=== PATIENT | male | born 1950 | race Caucasian/White ===

== ENCOUNTER 2021-05-12 07:10 | Inpatient (IN) | payer BC, OTHER ==
[~2021-05-12] VITALS: Ht 167.6 cm; Wt 97.5 kg
[~2021-05-12 07:10] MED LIST: ASA81 MG PO; CLARITIN-D 241 EACH PO; DIOVAN160 MG PO; FLAGYL250 MG PO; JANUVIA100 MG PO; LEVAQUIN500 MG PO; SIMVASTATIN40 MG PO; Z.0.ALEVE220 MG PO; Z.0.LIPITOR20 MG PO; Z.0.MULTIVITAMINS1 E PO; Z.0.PRINIVIL20 MG PO; Z.0.PROTONIX40 MG PO
[2021-05-12] MEDS ORDERED: ONDANSETRON HCL INJ 2MG/ML 2ML 2 MG/ML VIAL IV STA (07:20)
[2021-05-12] MEDS ORDERED: Morphine 4mg Syringe 4 MG/ML INJ IV STA (07:20)
[2021-05-12] MEDS ORDERED: SODIUM CHLORIDE 0.9% 1000ML 1,000 ML IV STA (07:20)
[2021-05-12 07:32] LABS: BASOPHILS % 0.7 % (0.0-1.0); EOSINOPHILS # (AUTO) 0.2 (0.0-0.4); EOSINOPHILS % 3.4 % (0.0-6.0); HEMOGLOBIN 14.1 g/dL (14.0-18.0); LYMPHOCYTES # (AUTO) 2.1 (1.0-3.2); LYMPHOCYTES % 47.5 % (18.0-39.1); MEAN CORPUSCULAR HEMOGLOBIN 30.2 pg (28-32); MEAN CORPUSCULAR VOLUME 94.2 fL (81-99); MONOCYTES # (AUTO) 0.5 (0.2-0.8); MONOCYTES % 12.4 % (4.4-11.3); NEUTROPHILS # (AUTO) 1.6 (2.1-6.9); NEUTROPHILS % 35.5 % (38.7-80.0); PLATELET COUNT 202 x10e3/uL (140-360); RED BLOOD COUNT 4.67 x10e6/uL (4.3-5.7); RED CELL DISTRIBUTION WIDTH 13.4 % (11.7-14.4)
[2021-05-12] MEDS ORDERED: HYDROMORPHONE 1MG/1ML INJ IV STA (07:34)
[2021-05-12 07:36] LABS: INR 0.89; PROTHROMBIN TIME 12.8 seconds (11.9-14.5)
[2021-05-12 07:37] LABS: PARTIAL THROMBOPLASTIN TIME 28.3 seconds (23.8-35.5)
[2021-05-12 07:45] LABS: ALBUMIN 3.9 g/dL (3.5-5.0); ALBUMIN/GLOBULIN RATIO 1.5 (0.8-2.0); ANION GAP 12.5 mmol/L (8-16); CALCIUM 8.9 mg/dL (8.4-10.2); CREATININE, SERUM 1.25 mg/dL (0.72-1.25); MAGNESIUM 1.9 MG/DL (1.3-2.1); POTASSIUM 3.5 mmol/L (3.5-5.1)
[2021-05-12] MEDS ORDERED: ONDANSETRON HCL INJ 2MG/ML 2ML 2 MG/ML VIAL ONE (07:46)
[2021-05-12 07:51] LABS: CREATINE KINASE MB 1.2 ng/mL (0-5.0)
[2021-05-12] MEDS ORDERED: SODIUM CHLORIDE 0.9% 50ML 50 ML ONE (08:10)
[2021-05-12] MEDS ORDERED: IOPAMIDOL 370 MG/ML 200 ML INFUS..BTL INJ ONE (08:11)
[2021-05-12 09:11] LABS: CLARITY,URINE CLEAR (CLEAR); COLOR,URINE YELLOW (YELLOW); KETONES,URINE TRACE (NEGATIVE); LEUKOCYTE ESTERASE ,URINE NEGATIVE (NEGATIVE); NITRITE,URINE NEGATIVE (NEGATIVE); PROTEIN,URINE DIPSTICK NEGATIVE (NEGATIVE); URINE UROBILINOGEN 0.2 mg/dL (0.2 - 1)
[2021-05-12 09:19] LABS: BACTERIA,URINE FEW /HPF; EPITHELIAL CELLS,URINE FEW /LPF; RBC,URINE 0-5 /HPF (0-5); WBC,URINE (MAN) 21-50 /HPF (0-5)
[2021-05-12] MEDS ORDERED: NITROGLYCERIN 0.4 MG SUBL SL PRN (09:45)
[2021-05-12] MEDS ORDERED: ONDANSETRON HCL INJ 2MG/ML 2ML 2 MG/ML VIAL IV PRN (09:45)
[2021-05-12] MEDS ORDERED: CEFTRIAXONE 2 GM in SODIUM CHLORIDE 0.9% 100 ML IV SCH (10:30)
[2021-05-12] MEDS ORDERED: CRESTOR10 MG PO (10:59)
[2021-05-12] MEDS ORDERED: CIALIS5 MG PO (11:00)
[2021-05-12] MEDS ORDERED: LYRICA50 MG PO (11:00)
[2021-05-12] MEDS ORDERED: IRBESARTAN150 MG PO (11:00)
[2021-05-12 12:00] VITALS: BP 151/87
[2021-05-12 12:15] VITALS: BP 151/87
[2021-05-12] MEDS: HYDROMORPHONE 1MG/1ML INJ IV PRN ×2 (15:44→20:05)
[2021-05-12 16:00] VITALS: BP 134/69
[2021-05-12 20:00] VITALS: BP 150/72
[2021-05-12 20:10] VITALS: BP 134/69
[2021-05-12] MEDS ORDERED: MAGNESIUM/ALUMINUM/SIMETHICONE 30 ML UDC PO PRN (23:30)
[2021-05-12] MEDS ORDERED: DEXTROSE 50% SYRINGE 50 ML IV PRN (23:30)
[2021-05-13] VITALS (8 sets, daily range): BP systolic 120–153; BP diastolic 63–86
[2021-05-13] MEDS: HYDROMORPHONE 1MG/1ML INJ IV PRN ×6 (00:15→20:10)
[2021-05-13 07:01] LABS: BASOPHILS % 0.2 % (0.0-1.0); EOSINOPHILS # (AUTO) 0.1 (0.0-0.4); EOSINOPHILS % 0.9 % (0.0-6.0); HEMATOCRIT 49.2 % (38.2-49.6); HEMOGLOBIN 15.7 g/dL (14.0-18.0); LYMPHOCYTES # (AUTO) 2.3 (1.0-3.2); LYMPHOCYTES % 18.5 % (18.0-39.1); MEAN CORPUSCULAR HEMOGLOBIN 30.3 pg (28-32); MEAN CORPUSCULAR HGB CONC 31.9 g/dL (31-35); MONOCYTES # (AUTO) 1.3 (0.2-0.8); MONOCYTES % 10.5 % (4.4-11.3); NEUTROPHILS # (AUTO) 8.7 (2.1-6.9); NEUTROPHILS % 69.5 % (38.7-80.0); PLATELET COUNT 207 x10e3/uL (140-360); RED BLOOD COUNT 5.18 x10e6/uL (4.3-5.7); RED CELL DISTRIBUTION WIDTH 13.7 % (11.7-14.4)
[2021-05-13 07:27] LABS: ALBUMIN 3.9 g/dL (3.5-5.0); ALBUMIN/GLOBULIN RATIO 1.2 (0.8-2.0); ANION GAP 13.8 mmol/L (8-16); CALCIUM 9.8 mg/dL (8.4-10.2); CREATININE, SERUM 1.16 mg/dL (0.72-1.25); POTASSIUM 4.8 mmol/L (3.5-5.1)
[2021-05-13] MEDS: INSULIN LISPRO 100 UNIT/1 ML 3ML VIAL SQ SCH ×4 (07:30→20:04)
[2021-05-13 07:46] LABS: CHOL/HDL RATIO 2.2 (3.9-4.7)
[2021-05-13 07:59] LABS: CREATINE KINASE MB 2.6 ng/mL (0-5.0)
[2021-05-13] MEDS ORDERED: SODIUM CHLORIDE 0.9% 250ML 250 ML ONE (08:52)
[2021-05-13] MEDS: ASPIRIN 81 MG ENTERIC COATED PO SCH (08:58)
[2021-05-13] MEDS: SITAGLIPTIN 100 MG TAB PO SCH (08:58)
[2021-05-13] MEDS: MULTIVITAMINS/MINERALS TAB PO SCH (08:58)
[2021-05-13] MEDS: IRBESARTAN 150 MG TAB PO SCH (08:58)
[2021-05-13] MEDS: TADALAFIL 5 MG PO SCH (09:00)
[2021-05-13] MEDS ORDERED: SODIUM CHLORIDE 0.9% 50ML 50 ML ONE (09:34)
[2021-05-13] MEDS ORDERED: GADOBENATE DIMEGLUMINE 1 ML IV ONE (09:34)
[2021-05-13] MEDS: CEFOXITIN 1GM/0.9% NS 50ML 50 ML IV SCH ×2 (10:17→18:11)
[2021-05-14] VITALS (8 sets, daily range): BP systolic 115–159; BP diastolic 68–88
[2021-05-14] MEDS: HYDROMORPHONE 1MG/1ML INJ IV PRN ×6 (00:40→22:30)
[2021-05-14] MEDS: CEFOXITIN 1GM/0.9% NS 50ML 50 ML IV SCH ×3 (02:00→18:00)
[2021-05-14 06:15] LABS: BASOPHILS % 0.4 % (0.0-1.0); EOSINOPHILS # (AUTO) 0.2 (0.0-0.4); EOSINOPHILS % 1.5 % (0.0-6.0); HEMATOCRIT 40.8 % (38.2-49.6); HEMOGLOBIN 13.3 g/dL (14.0-18.0); LYMPHOCYTES # (AUTO) 1.2 (1.0-3.2); LYMPHOCYTES % 11.7 % (18.0-39.1); MEAN CORPUSCULAR HEMOGLOBIN 30.2 pg (28-32); MEAN CORPUSCULAR HGB CONC 32.6 g/dL (31-35); MEAN CORPUSCULAR VOLUME 92.5 fL (81-99); MONOCYTES # (AUTO) 1.1 (0.2-0.8); MONOCYTES % 10.7 % (4.4-11.3); NEUTROPHILS # (AUTO) 7.4 (2.1-6.9); NEUTROPHILS % 75.3 % (38.7-80.0); PLATELET COUNT 180 x10e3/uL (140-360); RED BLOOD COUNT 4.41 x10e6/uL (4.3-5.7); RED CELL DISTRIBUTION WIDTH 13.2 % (11.7-14.4)
[2021-05-14 06:37] LABS: ALBUMIN 3.2 g/dL (3.5-5.0); ANION GAP 15.6 mmol/L (8-16); CALCIUM 9.1 mg/dL (8.4-10.2); CREATININE, SERUM 1.09 mg/dL (0.72-1.25); POTASSIUM 3.6 mmol/L (3.5-5.1)
[2021-05-14] MEDS: INSULIN LISPRO 100 UNIT/1 ML 3ML VIAL SQ SCH ×4 (07:30→20:39)
[2021-05-14] MEDS: TADALAFIL 5 MG PO SCH (09:00)
[2021-05-14] MEDS ORDERED: ONDANSETRON HCL 4 MG ORAL DISINTEGRATING TAB PO PRN (09:15)
[2021-05-14] MEDS: ASPIRIN 81 MG ENTERIC COATED PO SCH (09:36)
[2021-05-14] MEDS: MULTIVITAMINS/MINERALS TAB PO SCH (09:37)
[2021-05-14] MEDS: IRBESARTAN 150 MG TAB PO SCH (09:37)
[2021-05-14] MEDS: SITAGLIPTIN 100 MG TAB PO SCH (09:37)
[2021-05-15] VITALS (8 sets, daily range): BP systolic 118–168; BP diastolic 73–89
[2021-05-15] MEDS: HYDROMORPHONE 1MG/1ML INJ IV PRN ×5 (02:30→22:21)
[2021-05-15] MEDS: CEFOXITIN 1GM/0.9% NS 50ML 50 ML IV SCH ×3 (02:34→17:19)
[2021-05-15] MEDS: INSULIN LISPRO 100 UNIT/1 ML 3ML VIAL SQ SCH ×4 (07:30→22:08)
[2021-05-15] MEDS: TADALAFIL 5 MG PO SCH (08:11)
[2021-05-15] MEDS: SITAGLIPTIN 100 MG TAB PO SCH (08:11)
[2021-05-15] MEDS: ASPIRIN 81 MG ENTERIC COATED PO SCH (08:11)
[2021-05-15] MEDS: IRBESARTAN 150 MG TAB PO SCH (08:11)
[2021-05-15] MEDS: MULTIVITAMINS/MINERALS TAB PO SCH (08:12)
[2021-05-15] MEDS ORDERED: BUPIVACAINE HCL 0.5% INJ 30 ML VIAL INJ ONE (12:24)
[2021-05-15] MEDS ORDERED: FENTANYL CITRATE/PF 100MCG/2 ML INJ ONE (13:08)
[2021-05-15] MEDS ORDERED: MIDAZOLAM HCL 2 MG/2 ML VIAL ONE (13:08)
[2021-05-15] MEDS ORDERED: ROCURONIUM BROMIDE 10 MG/ML 5ML VIAL IV ONE (13:33)
[2021-05-15] MEDS ORDERED: KETOROLAC TROMETHAMINE 30 MG/ML VIAL ONE (13:33)
[2021-05-15] MEDS ORDERED: GLYCOPYRROLATE INJ 0.2 MG/ML VIAL ONE (13:33)
[2021-05-15] MEDS ORDERED: LIDOCAINE HCL 2% LOCAL INJ 5 ML SDV VIAL INJ ONE (13:33)
[2021-05-15] MEDS ORDERED: PROPOFOL IV EMULSION 10 MG/ML 20 ML VIAL ONE (13:33)
[2021-05-15] MEDS ORDERED: PHENYLEPHRINE HCL 1% 10 MG/ML VIAL ONE (13:33)
[2021-05-15] MEDS ORDERED: NEOSTIGMINE 1 MG/ML 10ML VIAL ONE (13:33)
[2021-05-15] MEDS ORDERED: POVIDONE IODINE 0.05% 0.05 % ML PO ONE (13:33)
[2021-05-15] MEDS ORDERED: SEVOFLURANE INHAL SOLN 250 ML PEN BTL ONE (13:33)
[2021-05-15] MEDS ORDERED: ONDANSETRON HCL INJ 2MG/ML 2ML 2 MG/ML VIAL ONE (13:33)
[2021-05-15] MEDS ORDERED: ONDANSETRON HCL INJ 2MG/ML 2ML 2 MG/ML VIAL IV PRN (14:00)
[2021-05-15] MEDS ORDERED: HYDROCODONE/APAP 5MG-325MG TAB PO PRN (14:00)
[2021-05-15] MEDS ORDERED: ACETAMINOPHEN 325 MG/10 ML UDC PO PRN (14:00)
[2021-05-15] MEDS: SODIUM CHLORIDE 0.9% 1000ML 1,000 ML IV SCH (14:35)
[2021-05-16] MEDS: SODIUM CHLORIDE 0.9% 1000ML 1,000 ML IV SCH (00:08)
[2021-05-16 01:05] VITALS: BP 124/63
[2021-05-16] MEDS: CEFOXITIN 1GM/0.9% NS 50ML 50 ML IV SCH ×2 (03:43→10:00)
[2021-05-16] MEDS: HYDROMORPHONE 1MG/1ML INJ IV PRN ×3 (03:44→11:55)
[2021-05-16 04:40] VITALS: BP 146/78
[2021-05-16] MEDS: INSULIN LISPRO 100 UNIT/1 ML 3ML VIAL SQ SCH ×2 (07:30→11:30)
[2021-05-16 07:44] VITALS: BP 149/87
[2021-05-16 07:55] VITALS: BP 149/87
[2021-05-16] MEDS: TADALAFIL 5 MG PO SCH (09:00)
[2021-05-16] MEDS: MULTIVITAMINS/MINERALS TAB PO SCH (09:09)
[2021-05-16] MEDS: ASPIRIN 81 MG ENTERIC COATED PO SCH (09:09)
[2021-05-16] MEDS: IRBESARTAN 150 MG TAB PO SCH (09:09)
[2021-05-16] MEDS: SITAGLIPTIN 100 MG TAB PO SCH (09:09)
[2021-05-16 12:04] VITALS: BP 145/89
[2021-05-16 16:24] VITALS: BP 152/82
== END 2021-05-16 17:32 | disposition home or self-care (01) | DRG 418 ==
LOC: ER 07:20 → ERHOLD 09:42 → OBSVTOIN 09:42 → MED/SURG3 10:46 → OBSVTOIN 05-14 10:55 → INTOOBSV 05-14 10:55
PROVIDERS: ADMIT Internal Medicine; ATTEND Internal Medicine
PROC: 0FT44ZZ Resection of Gallbladder, Percutaneous Endoscopic Approach (ICD-10-PCS; principal; 2021-05-15 13:00)
DX: K80.00 Calculus of gallbladder with acute cholecystitis without obstruction (principal); N39.0 Urinary tract infection, site not specified; E11.9 Type 2 diabetes mellitus without complications; I10 Essential (primary) hypertension; E78.5 Hyperlipidemia, unspecified; K21.9 Gastro-esophageal reflux disease without esophagitis; Z86.73 Personal history of transient ischemic attack (TIA), and cerebral infarction without residual deficits; I25.10 Atherosclerotic heart disease of native coronary artery without angina pectoris; R07.89 Other chest pain; Z79.82 Long term (current) use of aspirin; Z79.4 Long term (current) use of insulin
CPT/HCPCS: 36415; 71045; 74177; 74183; 80053; 80061; 81001; 82150; 82550; 82553; 82948; 83690; 83735; 84484; 85025; 85610; 85730; 87086; 88304; 93005; 94799; 99284; G0378; J0696; J1170; J1885; J2001; J2250; J2370; J2405; J2710; J3010; J7030; J7050; Q9967; U0002

== ENCOUNTER → 2024-10-04 | Day surgery (SDC) | payer BC, MEDICARE ==
[2024-09-29 11:21] LABS: BASOPHILS % 0.6 % (0.0-1.0); EOSINOPHILS # (AUTO) 0.1 (0.0-0.4); EOSINOPHILS % 2.8 % (0.0-6.0); HEMATOCRIT 45.3 % (38.2-49.6); HEMOGLOBIN 15.1 g/dL (14.0-18.0); LYMPHOCYTES # (AUTO) 1.5 (1.0-3.2); LYMPHOCYTES % 32.6 % (18.0-39.1); MEAN CORPUSCULAR HEMOGLOBIN 31.3 pg (28-32); MEAN CORPUSCULAR HGB CONC 33.3 g/dL (31-35); MEAN CORPUSCULAR VOLUME 93.8 fL (81-99); MONOCYTES # (AUTO) 0.6 (0.2-0.8); MONOCYTES % 12.8 % (4.4-11.3); NEUTROPHILS # (AUTO) 2.4 (2.1-6.9); NEUTROPHILS % 50.8 % (38.7-80.0); PLATELET COUNT 211 x10e3/uL (140-360); RED BLOOD COUNT 4.83 x10e6/uL (4.3-5.7); RED CELL DISTRIBUTION WIDTH 13.3 % (11.7-14.4); WHITE BLOOD COUNT 4.69 x10e3/uL (4.8-10.8)
[2024-09-29 11:46] LABS: ANION GAP 12.8 mmol/L (8-16); CALCIUM 9.5 mg/dL (8.4-10.2); CREATININE, SERUM 1.14 mg/dL (0.72-1.25); POTASSIUM 4.8 mmol/L (3.5-5.1)
[~2024-10-04] MED LIST changes: +BUPIVACAINE LIPOSOME/PF 266 MG/20 ML IJ ONE; +BUPIVACAINE/EPI 0.5% 30ML SDV-MPF INJ ONE; +CIALIS5 MG PO; +CRESTOR10 MG PO; +DEXAMETHASONE SOD PHOS INJ 4 MG/ML SDV ONE; +EPHEDRINE SULFATE INJ 50 MG/ML VIAL ONE; +FENTANYL CITRATE/PF 100MCG/2 ML INJ ONE; +HYDROCODON-ACE1 EA11 PO; +IBUPROFEN400 MG PO; +IRBESARTAN150 MG PO; +LIDOCAINE HCL 2% LOCAL INJ 5 ML SDV VIAL INJ ONE; +LYRICA50 MG PO; +MIDAZOLAM HCL 2 MG/2 ML VIAL ONE; +ONDANSETRON HCL INJ 2MG/ML 2ML 2 MG/ML VIAL ONE; +PHENYLEPHRINE HCL 1% 10 MG/ML VIAL ONE; +PROPOFOL IV EMULSION 10 MG/ML 20 ML VIAL ONE; +SEVOFLURANE INHAL SOLN 250 ML PEN BTL ONE
[2024-10-04] MEDS: LACTATED RINGER'S 1,000 ML ONE (09:35)
[2024-10-04 12:20] VITALS: TEMP 97.6
[2024-10-04 13:00] VITALS: BP 161/97; PULSE 79; RESP 16; O2SAT 98
== END | disposition home or self-care (01) ==
LOC: OR 08:34
PROVIDERS: ATTEND Plastic Surgery
DX: M18.9 Osteoarthritis of first carpometacarpal joint, unspecified (principal); S63.042A Subluxation of carpometacarpal joint of left thumb, initial encounter; M06.9 Rheumatoid arthritis, unspecified; I10 Essential (primary) hypertension; E11.9 Type 2 diabetes mellitus without complications; G89.29 Other chronic pain; E78.5 Hyperlipidemia, unspecified; Z88.6 Allergy status to analgesic agent; Z88.8 Allergy status to other drugs, medicaments and biological substances; Z01.810 Encounter for preprocedural cardiovascular examination; Z01.812 Encounter for preprocedural laboratory examination; Z01.818 Encounter for other preprocedural examination; Z85.828 Personal history of other malignant neoplasm of skin; Z79.82 Long term (current) use of aspirin; Z79.1 Long term (current) use of non-steroidal anti-inflammatories (NSAID); Z79.84 Long term (current) use of oral hypoglycemic drugs; Z79.899 Other long term (current) drug therapy
CPT/HCPCS: 25448; 36415 ×2; 71046; 80048; 82948; 85025; 93005; C1713; J0666; J0690; J1100; J2003; J2250; J2371; J2405; J2704; J3010; J7121